=== PATIENT | male | born 1975 | race Caucasian/White ===

== ENCOUNTER 2017-07-31 21:12 | Emergency (ER) | payer MEDICAID ==
[~2017-07-31] VITALS: Ht 177.8 cm; Wt 73.0 kg
[~2017-07-31 21:12] MED LIST: CYCL-36 PO; CYCL5TAB PO; DICL75 PO; HYDR10TA16 PO; LIDO5DIS35 TD; Z.0.NO CURRENT MEDS
[2017-07-31 21:16] VITALS: BP 138/64; PULSE 92; RESP 18; TEMP 97.3; O2SAT 100
[2017-07-31] MEDS ORDERED: TRAM50TA PO (21:49)
[2017-07-31] MEDS ORDERED: ORPHENADRINE INJ 60 MG/2 ML AMP IM ONE (22:00)
[2017-07-31] MEDS ORDERED: KETOROLAC TROMETHAMINE 60 MG/2 ML (IM) VIAL IM ONE (22:00)
--- NOTE | 2017-07-31 22:12 | PD ---
HPI Chief Complaint: Musculoskeletal Complaint Time Seen by Provider: 21:41 Travel History International Travel<30 days: No Contact w/Intl Traveler<30days: No Traveled to known affect area: No History of Present Illness HPI This patient complains of low back pain. Started 7 hours ago. 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 No direct trauma to it. Denies fever. 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) Tetanus Vaccination: Unknown Influenza Vaccination: No ?: Not Past Surgical History Surgical History: No Previous Surgery Social History Alcohol Use: No Tobacco Use: Yes (09/15 ppd) Substance Use: No Allergies-Medications (Allergen,Severity, Reaction): Coded Allergies: bee venom protein (honey bee) (Unverified Allergy, Severe, Anaphylaxis, ) Reported Meds & Prescriptions Reported Meds & Active Scripts Active Tramadol (Tramadol HCl) 50 Mg Tab 50 Mg PO Q6H PRN Review of Systems General / Constitutional: No: Fever HENT: No: Headaches Cardiovascular: No: Chest Pain or Discomfort Physical Exam Narrative GASTROINTESTINAL: Abdomen soft, non-tender, nondistended. Positive bowel sounds. No hepato-splenomegaly, or palpable masses. No guarding. NEUROLOGICAL: Awake and alert. Pupils are equal round and reactive. Motor and sensory grossly within normal limits. Five out of 5 muscle strength in all muscle groups. Normal speech. Back: No midline tenderness Data Data Last Documented VS Vital Signs Date Time Temp Pulse Resp B/P (MAP) Pulse Ox O2 Delivery O2 Flow Rate FiO2 07/31/17 21:16 97.3 92 18 138/64 (88) 100 Orders Orders Ketorolac Inj (Toradol Inj) (07/31/17 22:00) Orphenadrine Inj (Norflex Inj) (07/31/17 22:00) MDM Medical Decision Making Medical Screen Exam Complete: Yes Emergency Medical Condition: Yes Medical Record Reviewed: Yes Differential Diagnosis Lumbar strain, sciatica, disc herniation Narrative Course I have reviewed the patient's electronic medical record. Patient is neurologically intact. No indication for emergent studies I gave him injection of Toradol and Norflex with prescription for tramadol The patient was advised to follow up with their physician and return if they worsen. The patient was warned about potential sedation for the medications they will receive on prescription. Diagnosis Primary Impression: Low back pain Qualified Codes: M54.5 - Low back pain Additional Instructions: The patient was advised to follow up with their physician and return if they worsen. The patient was warned about potential sedation for the medications they will receive on prescription. Med/Other Pt SpecificInfo: Prescription(s) given, Other Scripts Tramadol (Tramadol) 50 Mg Tab 50 MG PO Q6H Y for PAIN, #20 TAB 0 Refills Prov: Dawit Cardoza MD 07/31/17 Disposition: 01 DISCHARGE HOME Condition: Stable Dawit Cardoza MD Jul 31, 2017 22:11
== END 2017-07-31 22:21 | disposition home or self-care (01) ==
LOC: PHED 21:12 → PHEFT 22:21
DX: M54.5 Low back pain (principal); F17.210 Nicotine dependence, cigarettes, uncomplicated
CPT/HCPCS: 96372; 99284; J1885; J2360